=== PATIENT | female | born 1950 | race Caucasian/White ===

== ENCOUNTER 2016-12-25 00:52 | Emergency (ER) ==
[2016-12-25] MEDS ORDERED: ASPIRIN PO STA (01:09)
[2016-12-25] MEDS ORDERED: G.I. COCKTAIL PO ONE ×2 (01:13→02:41)
--- NOTE | 2016-12-25 01:17 | PROVIDER DOCUMENTATION ---
HPI-Chest Pain - General Source: patient - History of Present Illness-CP Location: reports: substernal Chest Pain Radiation: reports: no radiation Quality of Pain: reports: sharp Severity in ED: moderate Onset/Duration: 4-6 hours ago Timing: still present, constant Context/Activities at Onset: denies: light activity, moderate activity, vigorous activity, recent emotional stress, recent physical stress, recent trauma history, possible bad food, cold exposure, eating, out of country travel , rest, sleep Modifying Factors: worse with: analgesics, antacids, breathing, cold/heat therapy, coughing, defecating, eating, exercise, immobilization, lying down, massage, movement, other medication, palpation, rest, urinating, vomiting Associated Symptoms: denies: abdominal pain, back pain, diaphoresis, dizziness, edema, fatigue, fever/chills, headache, heartburn, nausea, rash, shortness of breath, swelling/lump in chest, syncope, vomiting, weakness Nitro Today/Relief: no nitro taken today Aspirin Treatment Today: no aspirin today Prior Chest Pain/Cardiac Workup: reports: no prior chest pain, no prior cardiac workup Similar Symptoms Previously?: No Recently Seen Here or By Another Healthcare Provider: No <Dyan Medina - Last Filed: 12/25/16 01:48> <Lesli Eastman Jr - Last Filed: 12/25/16 02:42> <Castro Quesada - Last Filed: 12/25/16 02:46> - General Chief Complaint: General Adult Stated Complaint: HEARTBURN Time Seen by Provider: 12/25/16 01:01 Allergies/Adverse Reactions: Patient Allergies Allergy/AdvReac Type Severity Reaction Status Date / Time Penicillins Allergy Severe Unknown Verified 12/25/16 01:15 Sulfa (Sulfonamide Allergy Severe RASH Verified 12/25/16 01:15 Antibiotics) [Sulfa(Sulfonamide Antibiotics)] Home Medications: Home Medication List Medication Instructions Recorded Confirmed Last Taken Type Acyclovir 400 mg PO PRN PRN 08/20/12 12/25/16 08/13/12 History Aspirin/Acetaminophen/Caffeine 1 each PO PRN PRN 08/20/12 12/25/16 08/21/12 History [Excedrin Migraine Tablet] Butalb/Acetaminophen/Caffeine 1 each PO PRN PRN 1012/25/16 07/31/12 History [Fioricet 50-325-40 mg Tablet] Diphenhydramine HCl [Allergy] 50 mg PO HS 08/20/12 12/25/16 Unknown History Estrogen,Con/M-Progest Acet 1 each PO DAILY 08/20/12 12/25/16 08/27/12 08:00 History [Prempro 0.45-1.5 mg Tablet] Fexofenadine HCl [[place] Allergy] 180 mg PO PRN PRN 08/20/12 12/25/16 08/21/12 History Multivitamins/Minerals [Centrum 1 each PO DAILY 08/20/12 12/25/16 08/27/12 08: 00 History Silver] Pantoprazole Sodium 20 mg PO DAILY 08/20/12 12/25/16 08/28/12 05:00 History Pregabalin [Lyrica] 75 mg PO DAILY 08/20/12 12/25/16 08/27/12 21:00 History Sucralfate [Carafate] 1 gm PO PRN PRN 08/20/12 12/25/16 08/25/12 History Hydrocodone/Acetaminophen [Lortab 1 - 2 each PO Q4-6H PRN PRN #40 09/01/1212/25 Unknown Rx 10-500 Tablet] tablet Pantoprazole Sodium [Protonix] 40 mg PO DAILY #30 tablet. 12/25/16 Unknown Rx - History of Present Illness-CP Nature of Presenting Problem: 66 y/o WF c/o substernal chest pain since 1000 today. States she thought it was reflux, but has taken multiple tums and zantac without relief. Pain is sharp, without radiation. Nothing has made it worse or better. It has stayed constant this entire time. Denies diaphorses or nasuea. Has not taken aspirin or nitro today. No significance cardiac history, patient is a nonsmoker. (Dyan Medina) Review of Systems - Adult - REVIEW OF SYSTEMS - ADULT Constitutional: reports: no symptoms reported. denies: chills, fever, fatique Eyes: reports: no symptoms reported. denies: blurred vision, double vision, eye pain Ears, Nose, Mouth & Throat: reports: no symptoms reported. denies: ear pain, nose pain, throat pain Cardiovascular: reports: see HPI, chest pain. denies: irregular heart rate, palpitations, syncope Respiratory: reports: no symptoms reported. denies: cough, shortness of breath , wheezing Gastrointestinal: reports: no symptoms reported. denies: abdominal pain, diarrhea, nausea, vomiting Genitourinary: reports: no symptoms reported. denies: dysuria, discharge, frequency Musculoskeletal: reports: no symptoms reported. denies: bone pain, back pain, muscle aches Integumentary: reports: no symptoms reported. denies: rash Neurological: reports: no symptoms reported. denies: ataxia, dizziness/vertigo , headache/migraines Psychiatric: reports: no symptoms reported Endocrine: reports: no symptoms reported Hematologic/Lymphatic: reports: no symptoms reported Allergic/Immunologic: reports: no symptoms reported All Other Systems: Reviewed and Negative <Dyan Medina - Last Filed: 12/25/16 01:48> Past History - Adult - PAST MEDICAL HISTORY-ADULT Review of Records: reports: Old Records Reviewed, Nursing Assessment Review, Medications Reviewed, Social history reviewed & non-contributory. Major Childhood Illnesses: reports: denies history Cardiovascular: reports: denies history Respiratory: reports: denies history Gastrointestinal: reports: denies history Obstetrical/Gynecological: reports: denies history Genitourinary: reports: denies history Musculoskeletal: reports: chronic pain Neurological: reports: denies history Endocrine/Immune: reports: denies history Other Conditions: reports: denies history - IMMUNIZATION STATUS Childhood Immunizations: See Nurse Assessment Flu Vaccine: See Nurse Assessment - FAMILY HISTORY Family History: reviewed, not pertinent - SOCIAL HISTORY Smoking: denies Substance Use: none/never Alcohol Use Frequency: never Living Situation: family <Dyan Medina - Last Filed: 12/25/16 01:48> Physical Exam-General - PHYSICAL EXAM-ADULT Initial Vital Signs Reviewed: Yes - CONSTITUTIONAL General Appearance: appears well, alert, no apparent distress - EYES Eyes: PERRL/EOMI, pink conjunctivae - HEAD, EARS, NOSE, MOUTH & THROAT HENMT: normocephalic/atraumatic, moist mucous membranes, normal ENT inspection - NECK Neck: non-tender, full range of motion, supple, normal inspection - RESPIRATORY Respiratory: chest non-tender, lungs clear, normal breath sounds, no pleuratic chest pain, no respiratory distress, no accessory muscle use. negative: respiratory distress, decreased breath sounds, accessory muscle use, crackles, rales, rhonchi, wheezing - CARDIOVASCULAR Cardiovascular: normal peripheral pulses, regular rate, rhythm - CHEST (BREASTS) Chest/Breast: no tenderness - GASTROINTESTINAL (ABDOMEN) Abdominal Exam: normal bowel sounds, non tender, soft, no organomegaly, no pulsatile mass. negative: abdominal bruit, abnormal bowel sounds, distended, guarding, rigid, rebound, tenderness - MUSCULOSKELETAL Back Exam: normal inspection Extremity: normal gait Peripheral Pulses: radial (R): 2+, radial (L): 2+, dorsalis-pedis (R): 2+, dorsalis-pedis (L): 2+ - SKIN Integumentary: normal color, normal turgor, warm/dry - NEUROLOGIC Neurologic: grossly normal, no motor/sensory deficits - PSYCHIATRIC Psych/Mental Status: normal mood/affect, normal thought content, normal thought process, oriented x 3 <Dyan Medina - Last Filed: 12/25/16 01:48> Progress - CHANGE OF SHIFT REPORT (ED Provider) Report Given and Care Transferred to:: Dr. Eastman Time of Transfer: 01:48 Items Pending: Labs Tentative Impression of Patient: stable <Dyan Medina - Last Filed: 12/25/16 01:48> <Lesli Eastman Jr - Last Filed: 12/25/16 02:42> - EKG 1 Time of EKG reading by physician:: 01:23 EKG Read and Signed by:: Lesli Eastman Jr EKG Interpretation (*Must complete 3 of following elements*): Normal Rate: 57 Rhythm: Sinus bradycardia - XRAY 1 XRAY: Bilateral XRAY Study: Chest Impression: See EMR Report XRAY Interpretation: No acute process <Castro Quesada - Last Filed: 12/25/16 02:46> - PLAN OF CARE/RESULTS Progress/Plan/Lab Results: Laboratory Tests 12/25/16 12/25/16 12/25/16 01:41 01:41 01:41 WBC 4.79 L RBC 4.39 Hgb 11.8 L Hct 36.8 L MCV 83.8 MCH 26.9 L MCHC 32.1 L RDW Std Deviation 15.3 H Plt Count 206 MPV 10.6 H Immature Gran % (Auto) 0.0 Neut % (Auto) 48.0 Lymph % (Auto) 31.5 Floyd % (Auto) 14.2 H Eos % (Auto) 5.0 Baso % (Auto) 1.3 H Immature Gran # (Auto) 0.00 Neut # (Auto) 2.30 Lymph # (Auto) 1.51 Floyd # (Auto) 0.68 H Eos # (Auto) 0.24 Baso # (Auto) 0.06 PT INR PTT (Actin FS) D-Dimer 0.44 Sodium 143 Potassium 3.9 Chloride 107 Carbon Dioxide 27 Anion Gap 9 BUN 20 Creatinine 0.9 Estimated GFR/1.73 m2 > 60 BUN/Creatinine Ratio 22 Glucose 111 H Calculated Osmolality 288 Calcium 9.3 Magnesium 2.0 Total Bilirubin 0.26 AST 24 ALT 18 Alkaline Phosphatase 112 H Creatine Kinase 324 H Creatine Kinase Index 1.1 CK-MB (CK-2) 3.67 Troponin T Vis-Y-Aoxlipjlegw Pept Total Protein 6.1 L Albumin 3.6 Globulin 2.5 Albumin/Globulin Ratio 1.4 12/25/16 12/25/16 12/25/16 01:41 01:41 01:41 WBC RBC Hgb Hct MCV MCH MCHC RDW Std Deviation Plt Count MPV Immature Gran % (Auto) Neut % (Auto) Lymph % (Auto) Floyd % (Auto) Eos % (Auto) Baso % (Auto) Immature Gran # (Auto) Neut # (Auto) Lymph # (Auto) Floyd # (Auto) Eos # (Auto) Baso # (Auto) PT 10.2 INR 0.96 PTT (Actin FS) 28.4 D-Dimer Sodium Potassium Chloride Carbon Dioxide Anion Gap BUN Creatinine Estimated GFR/1.73 m2 BUN/Creatinine Ratio Glucose Calculated Osmolality Calcium Magnesium Total Bilirubin AST ALT Alkaline Phosphatase Creatine Kinase Creatine Kinase Index CK-MB (CK-2) Troponin T < 0.010 Spc-Q-Wpglkcfemlj Pept 85 Total Protein Albumin Globulin Albumin/Globulin Ratio Orders Category Date Time Status Cardiac Monitoring DIRECTED Care 12/25/16 01:09 Active Saline Loc NOW Care 12/25/16 01:09 Active CHEST-2 VIEWS [RAD] Stat Exams 12/25/16 01:09 Taken CBC WITH ELECTRONIC DIFF [HEME] Stat Lab 12/25/16 01:41 Completed CK PROFILE [SP CHEM] Stat Lab 12/25/16 01:41 Completed COMPREHENSIVE METABOLIC PANEL [CHEM] Stat Lab 12/25/16 01:41 Completed D-DIMER [CHEM] Stat Lab 12/25/16 01:41 Completed MAGNESIUM [CHEM] Stat Lab 12/25/16 01:41 Completed PRO B-NATRIURETIC PEPTIDE Stat Lab 12/25/16 01:41 Completed PROTIME WITH INR [COAG] Stat Lab 12/25/16 01:41 Completed PTT [COAG] Stat Lab 12/25/16 01:41 Completed TROPONIN T Stat Lab 12/25/16 01:41 Completed Aspirin Med 12/25/16 01:09 Discontinued 325 mg PO STAT STA Lido/Ambrosio Alk/Al&mg Hydrox [G.i. Cocktail] Med 12/25/16 01:13 Discontinued 30 ml PO NOW ONE Lido/Ambrosio Alk/Al&mg Hydrox [G.i. Cocktail] Med 12/25/16 02:41 Discontinued 30 ml PO NOW ONE Pantoprazole [Protonix] Med 12/25/16 02:41 Once 40 mg PO NOW ONE EKG [EKG] Stat Ther 12/25/16 01:09 Ordered Vital Signs - 24 hr 12/25/16 00:54 Temperature 97.5 F L Pulse Rate 62 Respiratory 14 Rate Blood Pressure 142/86 O2 Sat by Pulse 100 Oximetry (Lesli Eastman Jr) Vital Signs - 24 hr 12/25/16 12/25/16 00:54 02:44 Temperature 97.5 F L Pulse Rate 62 56 L Respiratory 14 19 Rate Blood Pressure 142/86 136/90 O2 Sat by Pulse 100 96 Oximetry Orders Category Date Time Status Cardiac Monitoring DIRECTED Care 12/25/16 01:09 Active Saline Loc NOW Care 12/25/16 01:09 Active CHEST-2 VIEWS [RAD] Stat Exams 12/25/16 01:09 Taken CBC WITH ELECTRONIC DIFF [HEME] Stat Lab 12/25/16 01:41 Completed CK PROFILE [SP CHEM] Stat Lab 12/25/16 01:41 Completed COMPREHENSIVE METABOLIC PANEL [CHEM] Stat Lab 12/25/16 01:41 Completed D-DIMER [CHEM] Stat Lab 12/25/16 01:41 Completed MAGNESIUM [CHEM] Stat Lab 12/25/16 01:41 Completed PRO B-NATRIURETIC PEPTIDE Stat Lab 12/25/16 01:41 Completed PROTIME WITH INR [COAG] Stat Lab 12/25/16 01:41 Completed PTT [COAG] Stat Lab 12/25/16 01:41 Completed TROPONIN T Stat Lab 12/25/16 01:41 Completed Aspirin Med 12/25/16 01:09 Discontinued 325 mg PO STAT STA Lido/Ambrosio Alk/Al&mg Hydrox [G.i. Cocktail] Med 12/25/16 01:13 Discontinued 30 ml PO NOW ONE Lido/Ambrosio Alk/Al&mg Hydrox [G.i. Cocktail] Med 12/25/16 02:41 Discontinued 30 ml PO NOW ONE Pantoprazole [Protonix] Med 12/25/16 02:41 Discontinued 40 mg PO NOW ONE EKG [EKG] Stat Ther 12/25/16 01:09 Ordered Laboratory Tests 12/25/16 12/25/16 12/25/16 01:41 01:41 01:41 WBC 4.79 L RBC 4.39 Hgb 11.8 L Hct 36.8 L MCV 83.8 MCH 26.9 L MCHC 32.1 L RDW Std Deviation 15.3 H Plt Count 206 MPV 10.6 H Immature Gran % (Auto) 0.0 Neut % (Auto) 48.0 Lymph % (Auto) 31.5 Floyd % (Auto) 14.2 H Eos % (Auto) 5.0 Baso % (Auto) 1.3 H Immature Gran # (Auto) 0.00 Neut # (Auto) 2.30 Lymph # (Auto) 1.51 Floyd # (Auto) 0.68 H Eos # (Auto) 0.24 Baso # (Auto) 0.06 PT INR PTT (Actin FS) D-Dimer 0.44 Sodium 143 Potassium 3.9 Chloride 107 Carbon Dioxide 27 Anion Gap 9 BUN 20 Creatinine 0.9 Estimated GFR/1.73 m2 > 60 BUN/Creatinine Ratio 22 Glucose 111 H Calculated Osmolality 288 Calcium 9.3 Magnesium 2.0 Total Bilirubin 0.26 AST 24 ALT 18 Alkaline Phosphatase 112 H Creatine Kinase 324 H Creatine Kinase Index 1.1 CK-MB (CK-2) 3.67 Troponin T Kxo-J-Uvhlhiodcoj Pept Total Protein 6.1 L Albumin 3.6 Globulin 2.5 Albumin/Globulin Ratio 1.4 12/25/16 12/25/16 12/25/16 01:41 01:41 01:41 WBC RBC Hgb Hct MCV MCH MCHC RDW Std Deviation Plt Count MPV Immature Gran % (Auto) Neut % (Auto) Lymph % (Auto) Floyd % (Auto) Eos % (Auto) Baso % (Auto) Immature Gran # (Auto) Neut # (Auto) Lymph # (Auto) Floyd # (Auto) Eos # (Auto) Baso # (Auto) PT 10.2 INR 0.96 PTT (Actin FS) 28.4 D-Dimer Sodium Potassium Chloride Carbon Dioxide Anion Gap BUN Creatinine Estimated GFR/1.73 m2 BUN/Creatinine Ratio Glucose Calculated Osmolality Calcium Magnesium Total Bilirubin AST ALT Alkaline Phosphatase Creatine Kinase Creatine Kinase Index CK-MB (CK-2) Troponin T < 0.010 Ozz-O-Hxgttkyterl Pept 85 Total Protein Albumin Globulin Albumin/Globulin Ratio (Castro Quesada) Departure <Dyan Medina - Last Filed: 12/25/16 01:48> - Departure Time of Disposition Order: 02:42 Certified Medical Emergency: Emergent <Lesli Eastman Jr - Last Filed: 12/25/16 02:42> - Departure Time of Disposition Order: 02:46 Certified Medical Emergency: Emergent <Castro Quesada - Last Filed: 12/25/16 02:46> - Departure DIAGNOSIS: Gastroesophageal reflux Qualifiers: Esophagitis presence: with esophagitis Qualified Code(s): K21.0 - Gastro- esophageal reflux disease with esophagitis Disposition: HOME 01 Condition: Good Additional Instructions: Pt to follow up at PCP as previously scheduled. ED Follow Up Instructions: You have been treated by a care provider in the Emergency Department. These instructions are being provided to you so you can have an understanding of how to care for yourself upon discharge. Upon discharge from the Emergency Department, you are responsible for making arrangements for follow-up care by a physician of your choice. Take all prescribed medications as directed. Return to the Emergency Department immediately for any new or worsening symptoms. You may call the Physician Referral phone number at [phone] to obtain a list of Physicians who are taking new patients. Prescriptions: Pantoprazole Sodium [Protonix] 40 mg PO DAILY #30 tablet. Referrals: Orlando Diaz DO [Primary Care Provider] - Attestation - Physician/ ANDREA Attestation Patient care was provided by Advanced Practice Provider:: Yes Advanced Practice Provider:: Dyan Medina Advanced Practice Provider documentation review:: The Mid-level provider documentation, treatment plan and medical decision making was reviewed by the physician who agrees with all treatment and medical decision making by the MLP. <Dyan Medina - Last Filed: 12/25/16 01:48> - Scribe Verification/Attestation Scribe:: Castro Quesada Acting as Scribe for:: Lesli Eastman Jr Scribe documention review:: This chart was documented by a scribe and accurately reflects the service the provider performed and the decisions made by the provider. <Castro Quesada - Last Filed: 12/25/16 02:46> Physician Attestation
[2016-12-25 01:48] LABS: MANUAL DIFF NEEDED? NO
[2016-12-25 01:49] LABS: BASO% 1.3 % (0.0-0.8); EOS# 0.24 X1000 (0.0-0.7); HEMATOCRIT 36.8 % (37.0-47.0); HEMOGLOBIN 11.8 g/dL (12.0-16.0); LYMPH# 1.51 X1000 (1.2-3.4); LYMPH% 31.5 % (20.5-51.1); MCH 26.9 PG (27-31); MCHC 32.1 g/dL (33-37); MCV 83.8 FL (81-99); MONO# 0.68 X1000 (0.11-0.59); MONO% 14.2 % (1.7-9.3); MPV 10.6 FL (7.4-10.4); PLT 206 X1000 (130-400); RBC 4.39 XMIL (4.2-5.4)
[2016-12-25 02:03] LABS: AGAP 9; ALBUMIN 3.6 g/dL (3.5-5.0); ALKALINE PHOSPHATASE 112 U/L (32-104); BUN 20 mg/dL (8-22); CALCIUM 9.3 mg/dL (8.8-10.2); CHLORIDE 107 mmol/L (98-107); COSMO 288; GOT 24 U/L (10-30); GPT 18 U/L (10-36); POTASSIUM 3.9 mmol/L (3.5-5.1); SODIUM 143 mmol/L (136-145); TCO2 27 mmol/L (25-35); TOTAL BILIRUBIN 0.26 mg/dL (0.20-1.00); TOTAL PROTEIN 6.1 g/dL (6.3-8.3)
[2016-12-25 02:09] LABS: CK PROFILE 324 U/L (24-173)
[2016-12-25 02:14] LABS: INR 0.96; PROTIME 10.2 Seconds (9.2-11.7); PTT 28.4 Seconds (22.0-36.0)
[2016-12-25 02:34] LABS: CK INDEX 1.1 (0.0-2.5); CK-MB 3.67 ng/mL (0.0-5.0)
[2016-12-25] MEDS ORDERED: PROTONIX PO ONE (02:41)
[2016-12-25 02:44] VITALS: BP 136/90
--- NOTE | 2016-12-25 05:36 | EKG Report ---
Test Performed on : 12/25/2016 01:23:05 AM Test Reason : Chest Pain Blood Pressure : / mmHG Vent. Rate : 057 BPM Atrial Rate : 057 BPM P-R Int : 168 ms QRS Dur : 098 ms QT Int : 426 ms P-R-T Axes : 043 -01 008 degrees QTc Int : 414 ms Sinus bradycardia. Otherwise normal ECG When compared with ECG of 20-AUG-2012 13:04, No significant change was found Unconfirmed Result
--- NOTE | 2016-12-25 07:54 | Diag Imaging Result Document ---
PROCEDURE NAME: CHEST-2 VIEWS - 12/25/2016 FRONTAL AND LATERAL CHEST, TWO VIEWS: COMPARISON: Compared to 08/20/2012. FINDINGS: The lungs are well expanded. The heart is mildly prominent. The vessels are not distended. No pleural effusions. No pneumonia. No free air beneath the diaphragm. There are degenerative changes in the thoracic spine. IMPRESSION: Mild cardiomegaly.
== END 2016-12-25 02:52 | disposition home or self-care (01) ==
LOC: ED 00:52
DX: K21.0 Gastro-esophageal reflux disease with esophagitis (principal); R07.2 Precordial pain; G89.29 Other chronic pain; Z79.899 Other long term (current) drug therapy; Z79.82 Long term (current) use of aspirin
CPT/HCPCS: 71020; 80053; 82550; 82553; 83735; 83880; 84484; 85025; 85379; 85610; 85730; 93005

== ENCOUNTER 2019-08-10 10:52 | Observation (INO) ==
[2019-08-10] MEDS ORDERED: SALINE LOCK IV FLUID XX ONE (11:02)
[2019-08-10] MEDS ORDERED: CORTROSYN IV ONE (11:06)
[2019-08-10] MEDS ORDERED: NS 1,000 ML IV SCH (11:15)
[2019-08-10 11:46] VITALS: BP 144/80
[2019-08-10 13:37] LABS: BASO# 0.03 X1000 (0.0-0.2); BASO% 0.7 % (0.0-0.8); EOS# 0.17 X1000 (0.0-0.7); EOS% 3.9 % (0.0-10.0); HEMATOCRIT 42.1 % (37.0-47.0); HEMOGLOBIN 13.7 g/dL (12.0-16.0); LYMPH# 1.17 X1000 (1.2-3.4); LYMPH% 26.6 % (20.5-51.1); MCH 29.2 PG (27-31); MCHC 32.5 g/dL (33-37); MCV 89.8 FL (81-99); MONO# 0.59 X1000 (0.11-0.59); MONO% 13.4 % (1.7-9.3); MPV 9.8 FL (7.4-10.4); NEUT# 2.44 X1000 (1.4-6.5); NEUT% 55.4 % (42.2-75.2); PLT 227 X1000 (130-400); RBC 4.69 XMIL (4.2-5.4); RDW 13.8 % (11.5-14.5)
[2019-08-10 14:17] LABS: AGAP 9; ALB/GLOB RATIO 1.4; ALBUMIN 3.9 g/dL (3.5-5.0); ALKALINE PHOSPHATASE 115 U/L (32-104); BUN 21 mg/dL (8-22); CALCIUM 9.7 mg/dL (8.8-10.2); CHLORIDE 104 mmol/L (98-107); COSMO 280; CREATININE 0.7 mg/dL (0.5-0.9); ESTIMATED GFR > 60; GLUCOSE 93 mg/dL (70-104); GOT 18 U/L (10-30); GPT 17 U/L (10-36); POTASSIUM 4.3 mmol/L (3.5-5.1); SODIUM 139 mmol/L (136-145); TCO2 26 mmol/L (25-35); TOTAL BILIRUBIN 0.29 mg/dL (0.20-1.00); TOTAL PROTEIN 6.7 g/dL (6.3-8.3)
[2019-08-10 17:29] LABS: URINE SOURCE CLEAN CATCH
[2019-08-10 17:32] LABS: BILIRUBIN URINE NEGATIVE (NEGATIVE); BLOOD URINE NEGATIVE (NEGATIVE); COLOR YELLOW; GLUCOSE URINE NEGATIVE (NEGATIVE); KETONE URINE NEGATIVE (NEGATIVE); LEUKOCYTES URINE NEGATIVE (NEGATIVE); NITRITE URINE NEGATIVE (NEGATIVE); PH URINE 5.5; PROTEIN URINE NEGATIVE (NEGATIVE); SP GRAVITY URINE 1.021; TURBIDITY URINE CLEAR (CLEAR); UR EPITHELIAL CELLS <10 /HPF (<10); URINE BACTERIA NEGATIVE /HPF; URINE RBC <10 /HPF (<10); URINE WBC <10 /HPF (<10); UROBILINOGEN URINE NORMAL (NORMAL)
--- NOTE | 2019-08-10 22:48 | HISTORY AND PHYSICAL ---
ATTENDING PHYSICIAN: Orlando Diaz D.O. ADMITTING PHYSICIAN: Orlando Diaz D.O. CHIEF COMPLAINT: Lightheadedness and dizziness. Mrs. Morales is a pleasant 69-year-old female patient of mine with past medical history consistent with dyslipidemia, restless legs syndrome, exertional shortness of breath presumed to be secondary to deconditioning, personal history of malignant neoplasm of the skin, peripheral neuropathy, asthma, migraine, postmenopause, iron deficiency, prediabetes in the form of impaired glucose tolerance, thoracic back pain, accelerated weight loss presumed to be intentional and generalized osteoarthritis. She was seen in the Internal Medicine Clinic last week on Saturday the complaining of feeling unwell. She was noted at that time to be significantly orthostatic with blood pressures systolically falling from 140 mmHg lying to standing at 108 mmHg. She states that she had been progressively been getting lightheaded and dizzy and that the condition has been going on for several weeks. She also has returned recently from a trip to [place] and also has had revision of neck surgery both of these prior to presenting to the office for evaluation. We offered based at that time with profound hypotension admission with fluids and further reassessment however the patient declined. Over the weekend she has failed to improve and has continued to be lightheaded and dizzy upon standing. She is admitted to the internal medicine service for further diagnostic workup and evaluation. ALLERGIES: Including penicillin and sulfa. MEDICATIONS ON ADMISSION: Including aspirin 325 mg once daily, acyclovir topical as needed, Valtrex 500 mg once daily, Breo Ellipta 200/25 one puff once daily, B12 replacement, Restoril 15 mg p.o. at bedtime p.r.n., multivitamin 1 p.o. daily, gabapentin 100 mg t.i.d., Requip 1 mg p.o. at bedtime and omeprazole 40 mg once daily. PAST MEDICAL HISTORY: As per HPI above. FAMILY HISTORY: Father 85 old age. Mother complications of parkinsonism at 75. Sister 65 with multiple axial spine issues including neck fusion and back surgery. She is with no children having been for 30 years in 2019. 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 She reports no historical or ongoing tobacco use but approximately 1 drink per month. She is well traveled. Last time out of the country this past summer to [place] for a river cruise. Last comprehensive reassessment and annual exam 11/12/2018. REVIEW OF SYSTEMS: Twelve-point review of systems is unremarkable except that noted above. Additional diagnostic workup historically as an outpatient including but not limited to GXT thallium for exertional shortness of breath August 2017 negative for reversible ischemia but with fixed defect in the left ventricular apex. Coronary calcium score in November with score at 0. PAST SURGICAL HISTORY: Cataract surgery bilateral in 2015, cholecystectomy in 2010, knee surgery in 02/05, 06/07, health, tubal ligation in , right ankle replacement in 2009, left carpal tunnel in 1988, right carpal tunnel in 2006, eye surgery in the summer, lumbosacral spine surgery in the fall and neck surgery in the spring. Vitals on admission blood pressure 144/80, pulse at 58, respirations at 19, temperature 97.9 degrees, saturating 98% on room air. Orthostatics vitals lying 144/80, sitting 137/79, standing 127/78, this would represent a 13 point drop from lying to standing. This is much less impressive than a 32 point drop which was experienced last week in the Internal Medicine Clinic. Weight at 245 pounds. This would be approximately 5 pounds down from her previous weight in the clinic on August 05. HEENT: Normocephalic, atraumatic. Pupils and reactive to light and accommodation. Neck: Soft and supple without lymphadenopathy or bruits. Cardiovascular: Regular rate and rhythm without murmurs, gallops or rubs. Lungs: Clear to auscultation bilaterally. No wheezes, rhonchi or rales. Abdomen: Soft without tenderness, guarding or rigidity. Extremities: Benign without clubbing, cyanosis, or edema. There is presence of cutaneous lesion in the distal left lower extremity. Recent biopsy consistent with localized squamous cell, she anticipates up coming surgery. Neurological: Cranial nerves 2-12 are grossly intact. Patient is alert, oriented x3 without any cognitive deficiencies. LABORATORY: Obtained on admission, white blood cell count 4.4, hemoglobin and hematocrit at 13.7 and 42.1, platelets at 227,000. Sodium 139, potassium 4 3, chloride 104, bicarb 26, BUN and creatinine at 21 and 0.7, glucose at 93. AST and ALT at 18 and 17. Urine is negative. A Cortrosyn stim test is performed demonstrating a free Cortrosyn, cortisol level at 6.66, 30 minute level cortisol at 21.39 and 60 minutes cortisol level at 28.40. This would be consistent with a normal response to Cortrosyn stim test. IMPRESSION: 69-year-old with some historical profound orthostatic hypotension without antihypertensive on board. Differential diagnosis including iatrogenic, cardiac mediated, adrenal insufficiency, autonomic insufficiency, acute gastrointestinal bleed or other potential causes such as volume loss, the patient has no previous history of any of these risk factors. She is admitted to the Internal Medicine Clinic for IV hydration as well as Cortrosyn stim test which is returned as unremarkable. Considering historical studies done as an outpatient it is my medical opinion that no further inpatient care is indicated considering a negative Cortrosyn stim test. She will be released this evening with interval followup in the Internal Medicine Clinic over the course of the next 7 to 10 days. The patient and understand the course of treatment and plan. No further issues at this time. Total time spent with the patient at the bedside and dictation approximately 75 minutes. cc: Orlando Diaz DO
== END 2019-08-10 19:17 | disposition home or self-care (01) ==
LOC: DIRADM → 3N 11:19
PROVIDERS: ADMIT Internal Medicine; ATTEND Internal Medicine